=== PATIENT | male | born 1965 | race Caucasian/White ===

== ENCOUNTER 2019-09-10 16:39 | Emergency (ER) | payer OTHER ==
[2019-09-10 16:52] VITALS: BP 112/69; PULSE 90; TEMP 98.1; BMI 36.0
[2019-09-10] MEDS ORDERED: HYDROmorphone HCL CARPU-JECT 1 MG/1 ML DISP.SYRIN IM ONE (16:54)
[2019-09-10] MEDS ORDERED: HYDROmorphone HCL CARPU-JECT 1 MG/1 ML DISP.SYRIN ONE (16:59)
== END 2019-09-10 19:09 | disposition home or self-care (01) ==
LOC: FER 16:39
PROC: 3E033GC Introduction of Other Therapeutic Substance into Peripheral Vein, Percutaneous Approach (ICD-10-PCS; principal; 2019-09-10)
DX: M25.562 Pain in left knee (principal)
CPT/HCPCS: 73562-TC-LT-FY; 93971-TC; 99284-25